=== PATIENT | female | born 1965 | race Caucasian/White ===

== ENCOUNTER → 2016-12-20 | Outpatient (CLI) | payer BC ==
[2016-12-20 14:34] VITALS: BP 133/71; PULSE 65; RESP 16; TEMP 98.2; BMI 30.2
--- NOTE | 2016-12-20 17:02 | P.HPBAR ---
Bariatric H&P - History & Physicial H&P Date: 12/20/16 History & Physicial: Visit/CC: sleeve f/u Patient initial contact: Initial weight: 154.675 kg Initial weight in pounds: 341.00 Height: 5 ft 6 in Initial BMI: 55.0 Last weight: Current weight: 84.912 kg Current weight in pounds: 187.20 Current BMI: 30.2 [place] body weight (based on NIH guidelines): 58.967 kg Excess body weight loss: 72.8% The patient is a 51 year-old F who presents for Bariatric Assessment. Patient presents today for sleeve gastrectomy fall. She is moving closer to [facility] and wished to have a referral to a at the [facility]. Past Medical History Past Medical History: GERD/Reflux, Thyroid Disorder Additional Past Medical History / Comment(s): Closed head injury 12/07/13 from hitting head on a treadmill handrail when standing up, hypothyroidism, History of Any Multi-Drug Resistant Organisms: None Reported Past Surgical History: Bariatric Surgery, Cholecystectomy, Tonsillectomy Additional Past Surgical History / Comment(s): cholecystectomy 07/05/16, patient states she has had boils removed from pannus area due to excess skin in 2009 Past Anesthesia/Blood Transfusion Reactions: Postoperative Nausea & Vomiting ( PONV) Smoking Status: Never smoker Past Drug Use History: None Reported Surgical - Exam Vital Signs Temp Pulse Resp BP 98.2 F 65 16 133/71 12/20/16 14:27 12/20/16 14:27 12/20/16 14:27 12/20/16 14:27 - General well developed, no distress - Eyes PERRL - ENT normal pinna - Neck no masses - Respiratory normal expansion - Cardiovascular Rhythm: regular - Abdomen Abdomen: soft, non tender Bariatric Assessment & Plan Plan: The patient doing fairly well from her sleeve yesterday. Her GERD symptoms and will and will be observed. I recommended that she contact you regarding [place] [facility] and obtain follow-up there. Patient was offered have her labs checked today. She states that she had recent blood work done by her PCP. She will follow-up as needed. Bariatric Checklist Checklist: Plan: Checklist: EGD: 1. Hiatal hernia: 2. H. Pylori: HgbA1c: Vitamin D: Smoking: Never smoker [facility] Psych[facility]ry clearance: Cardiology clearance: Sleep study: Diet journal: VTE risk score: VTE risk level: Rehab needs at discharge:
== END | disposition home or self-care (01) ==
LOC: BARWHC3 14:07
PROVIDERS: ATTEND Surgery
DX: Z09 Encounter for follow-up examination after completed treatment for conditions other than malignant neoplasm (principal); K21.9 Gastro-esophageal reflux disease without esophagitis; E03.9 Hypothyroidism, unspecified; Z98.84 Bariatric surgery status
CPT/HCPCS: 99201